=== PATIENT | female | born 1990 | race Caucasian/White ===

== ENCOUNTER 2017-07-27 03:46 | Emergency (ER) | payer OTHER ==
[~2017-07-27] VITALS: Ht 167.6 cm; Wt 136.1 kg
[2017-07-27 03:56] VITALS: BP 158/102
[2017-07-27] MEDS ORDERED: METFORMIN HCL500 MG PO (04:00)
[2017-07-27] MEDS ORDERED: AMOXICILLIN 50500 MG PO (04:06)
[2017-07-27] MEDS ORDERED: ULTRAM 50MG TAB50 MG PO (04:06)
== END 2017-07-27 04:13 | disposition home or self-care (01) ==
LOC: M.ERS 03:46
DX: H66.91 Otitis media, unspecified, right ear (principal); E11.9 Type 2 diabetes mellitus without complications